=== PATIENT | male | born 1970 | race African-American/Black ===

== ENCOUNTER 2024-07-21 16:25 | Emergency (ER) | payer OTHER ==
[~2024-07-21] VITALS: Ht 185.4 cm; Wt 91.0 kg
[2024-07-21 16:27] VITALS: PULSE 67; O2SAT 98
[2024-07-21 16:32] VITALS: BP 121/78; RESP 16; TEMP 97.5; O2SAT 99
[2024-07-21 17:06] LABS: CHLORIDE 104 mEq/L (98-107); POTASSIUM 4.6 mEq/L (3.5-5.1); SODIUM 141 mEq/L (136-145)
[2024-07-21 17:07] LABS: BASOPHILS % 1.1 % (0.0-2.0); EOSINOPHILS % 2.5 % (0.0-5.0); HEMATOCRIT. 50.8 % (42.0-52.0); HEMOGLOBIN. 16.6 g/dL (14.0-18.0); LYMPHOCYTES % 27.6 % (20.0-50.0); MEAN CORPUSCULAR HEMOGLOBIN 29.7 pg (28.0-32.0); MEAN CORPUSCULAR HGB CONC 32.8 g/dL (31.0-37.0); MEAN CORPUSCULAR VOLUME 90.6 fL (80.0-94.0); MEAN PLATELET VOLUME 8.6 fl (7.4-10.4); MONOCYTES % 10.2 % (2.0-8.0); NEUTROPHILS % 58.6 % (40.0-76.0); PLATELET 220 x1000/uL (130-400); RED CELL DISTRIBUTION WIDTH 14.3 % (11.6-14.6); WHITE BLOOD COUNT 8.8 x1000/uL (4.5-11.0)
[2024-07-21 17:08] LABS: CARBON DIOXIDE 29 mEq/L (21-32)
[2024-07-21 17:12] LABS: CREATININE 1.2 mg/dL (0.6-1.3)
[2024-07-21 17:13] LABS: GLUCOSE 116 mg/dL (70-105); UREA NITROGEN BLOOD 12 mg/dL (9-23)
== END 2024-07-21 20:00 | disposition home or self-care (01) ==
LOC: ER 16:25
DX: I10 Essential (primary) hypertension (principal); Z98.890 Other specified postprocedural states
CPT/HCPCS: 36415; 80048; 85025; 99283